=== PATIENT | female | born 1970 | race Caucasian/White ===

== ENCOUNTER → 2017-12-14 15:47 | Outpatient (REF) | payer MEDICAID, SELFPAY ==
[2017-12-14 18:14] LABS: Basophils % 0.4 % (0.1-2.0); Eosinophils # 0.2 K/mm3 (0.0-0.4); Eosinophils % 1.7 % (0.1-12.0); Hematocrit 41.1 % (37.0-47.0); Hemoglobin 13.6 g/dL (12.2-16.2); Lymphocytes # 2.5 K/mm3 (0.7-4.5); Lymphocytes % 23.2 K/mm3 (10-50); Mean Corpuscular HGB Conc 33.2 g/dL (31.8-35.4); Mean Corpuscular Hemoglobin 30.8 pg (27.0-31.2); Mean Corpuscular Volume 92.8 fl (81-99); Mean Platelet Volume 8.3 fl (7.4-10.4); Monocytes # 0.6 K/mm3 (0.1-1.0); Monocytes % 5.6 % (1.7-9.3); Neutrophils # 7.4 K/mm3 (1.8-7.8); Neutrophils % 69.1 % (37.0-80.0); Platelet Count 309 K/mm3 (142-424); Red Blood Count 4.43 M/mm3 (4.20-5.40); Red Cell Distribution Width 12.1 % (11.5-17.5); White Blood Count 10.8 K/mm3 (4.8-10.8)
[2017-12-14 19:00] LABS: Hemoglobin A1C 5.8 % (0.0-7.0)
[2017-12-14 20:39] LABS: Alanine Aminotransferase 36 U/L (12-78); Albumin Level 3.8 gm/dL (3.4-5.0); Alkaline Phosphatase 133 U/L (46-116); Anion Gap 12.2 mEq/L (5-15); Aspartate Amino Transferase 22 U/L (15-37); Bilirubin,Total 0.2 mg/dL (0.2-1.0); Blood Urea Nitrogen 8 mg/dL (7-18); Calcium 8.9 mg/dL (8.5-10.1); Carbon Dioxide 27 mmol/L (21.0-32.0); Chloride 103 mmol/L (98-107); Creatinine,Serum 0.91 mg/dL (0.55-1.02); Estimated Glomerular Filt Rate 66 ml/min (>60); GFR (African American) 80 ML/MIN (>60); Globulin 3.7 gm/dl (1.3-3.2); Glucose 72 mg/dL (74-106); Potassium 4.2 mmoL/L (3.5-5.1); Sodium 138 mmol/L (136-145); T4 (Thyroxine) 8.1 ug/dl (4.7-13.3); Thyroid Stimulating Hormone 0.89 uIU/ml (0.358-3.740); Total Protein,Serum 7.5 gm/dL (6.4-8.2)
[2017-12-16 08:27] LABS: Vitamin D 25 Hydroxy 19.2 ng/mL (30.0-100.0)
== END ==
LOC: LAB 15:47
PROVIDERS: Visit Provider Physician Assistant
DX: R53.83 Other fatigue (principal); F32.1 Major depressive disorder, single episode, moderate; F41.9 Anxiety disorder, unspecified
CPT/HCPCS: 80053; 82652; 83036; 84436; 84443; 85025

== ENCOUNTER → 2019-05-28 12:54 | Outpatient (CLI) | payer OTHER, SELFPAY | PROVIDERS: PCP Physician Assistant; Visit Provider Physician Assistant | DX: R06.02 Shortness of breath (principal) | CPT/HCPCS: 94060; 94640; 94726; 94727; 94729 ==

== ENCOUNTER 2020-08-26 13:39 | Emergency (ER) | payer OTHER, SELFPAY ==
[2020-08-26 13:45] VITALS: BP 141/86; PULSE 89; RESP 20; TEMP 36.9; O2SAT 97; BMI 25.0
--- NOTE | 2020-08-26 14:19 | HMH.EDUTC ---
[facility] Disposition Clinical Impression: Left otitis media Qualifiers: Otitis media type: suppurative Chronicity: acute Recurrence: non-recurrent Spontaneous tympanic membrane rupture: without spontaneous rupture Qualified Code(s): H66.002 - Acute suppurative otitis media without spontaneous rupture of ear drum, left ear Sinusitis Qualifiers: Sinusitis location: unspecified location Chronicity: acute Recurrence: non-recurrent Qualified Code(s): J01.90 - Acute sinusitis, unspecified Disposition: Home, Self-Care Condition on Discharge: Good Instructions: Middle Ear Infection, DI for Sinusitis Additional Instructions: Drink plenty of fluids. Take tylenol or ibuprofen for pain or fever. Take the medications as directed. Follow up with your regular doctor. GO TO THE ER FOR ANY WORSENING SYMPTOMS Prescriptions: Amoxicillin/Potassium Clav [Augmentin 500mg tab] 500 mg PO TID #30 tab Transmission Status: Received by [id number] methylPREDNISolone [Medrol] 4 mg PO DIRECTED 6 Days #21 tab.ds.pk Transmission Status: Received by [id number] Neomycin/Polymyxin B Sulf/Hc [Qdngzwiu-Mdyokpvhq-XM Otic Susp 10mL] 3 drops EAR-RIGHT TID 7 Days #1 bottle Transmission Status: Received by [id number] Referrals: Carrie Boland PA [Primary Care Provider] - Time of Disposition: 14:31 Medical Decision Making - Medical Records Medical records reviewed: No: I reviewed the patient's medical records. - Abram Inquiry Pt receiving controlled substance: No Vital Signs: 08/26/20 13:45 08/26/20 14:32 Temperature 98.4 F 98.4 F Temperature Source Oral Pulse Rate 89 Pulse Rate [Right Brachial] 89 Respiratory Rate 20 20 Blood Pressure 141/86 H Blood Pressure [Right Arm] 141/86 H Blood Pressure Mean [Right Arm] 104 Blood Pressure Source [Right Arm] Automatic Cuff Blood Pressure Position [Right Arm] Sitting 02 Sat by Pulse Oximetry 97 Oxygen Delivery Method Room Air [facility] HPI - General Stated complaint: lt ear pain Time Seen by Provider: 08/26/20 14:19 Mode of Arrival: Ambulatory Source of Information: Patient Limitations: No Limitations Description of Symptoms (Recalled from Triage Doc. by RN): PATIENT C/O LEFT EAR PAIN WITH DECREASED HEARING X 5 DAYS HEENT Symptoms (Recalled from RN notes): Yes Resp Symptoms (Recalled from RN notes): No Skin Symptoms (Recalled from RN notes): No MS Symptoms (Recalled from RN notes): No Functional Status (Recalled from RN notes): WNL - History of Present Illness Provider Complaint: She states that for the past 2 days she has had decreased hearing in her left ear. She has also had a cough and sinus congestion. - Related Data Previous Rx's Medication Instructions Recorded inhalational spacing device See Rx Instructions .ROUTE 06/25/19 .MEDSUPPLY #1 each albuterol sulfate 90 mcg/actuation See Rx Instructions .ROUTE 11/23/19 aerosol inhaler .COMPLEX #18 g benzonatate 200 mg capsule 200 mg PO TID PRN 7 Days #21 cap 02/01/20 methylprednisolone 4 mg tablet 4 mg PO DAILY 6 Days #21 tab 02/01/20 fluticasone furoate 200 See Rx Instructions .ROUTE 07/23/20 mcg-vilanterol 25 mcg/dose .COMPLEX #60 each inhalation powder buspirone 10 mg tablet See Rx Instructions .ROUTE 08/12/20 .COMPLEX #180 tab escitalopram oxalate 10 mg tablet See Rx Instructions .ROUTE 08/12/20 .COMPLEX #90 tab Amoxicillin/Potassium Clav 500 mg PO TID #30 tab 08/26/20 [Augmentin 500mg tab] Neomycin/Polymyxin B Sulf/Hc 3 drops EAR-RIGHT TID 7 Days #1 08/26/20 [Nomgulgf-Zidvdiegg-LO Otic Susp bottle 10mL] methylPREDNISolone [Medrol] 4 mg PO DIRECTED 6 Days #21 08/26/20 tab.ds.pk Allergies Allergy/AdvReac Type Severity Reaction Status Date / Time No Known Allergies Allergy Verified 08/26/20 14:10 - Worker's Comp Is this a Worker's Comp case?: No [facility] History - Hepatitis A Screen Drug use history?: No High risk sexual behaviors
[2020-08-26 14:32] VITALS: BP 141/86; PULSE 89; RESP 20; TEMP 36.9; O2SAT 97
== END 2020-08-26 14:36 | disposition home or self-care (01) ==
PROVIDERS: Emergency Provider Nurse Practitioner Family; PCP Physician Assistant
DX: H66.002 Acute suppurative otitis media without spontaneous rupture of ear drum, left ear (principal); J01.90 Acute sinusitis, unspecified; J44.9 Chronic obstructive pulmonary disease, unspecified; F17.210 Nicotine dependence, cigarettes, uncomplicated; Z79.899 Other long term (current) drug therapy
CPT/HCPCS: 99202; G0463

== ENCOUNTER → 2022-05-11 15:18 | Outpatient (CLI) | payer OTHER, SELFPAY ==
[2022-05-11 19:16] LABS: Alanine Aminotransferase 16 U/L (12-78); Albumin Level 4.5 g/dl (3.5-5.0); Albumin/Globulin Ratio 1.6 (1.1-1.8); Alkaline Phosphatase 113 U/L (38-126); Anion Gap 12.6 mEq/L (5-15); Aspartate Amino Transferase 33 U/L (14-36); Basophils # 0.1 K/mm3 (0-0.2); Basophils % 0.8 % (0.1-2.0); Bilirubin,Total 0.3 mg/dl (0.2-1.3); Blood Urea Nitrogen 12 mg/dl (7-17); Calcium 9.1 mg/dl (8.4-10.2); Carbon Dioxide 24 mmol/L (22.0-30.0); Chloride 107 mmol/L (98-107); Chol/HDL Ratio 4.3 (1-3.5); Cholesterol 213 mg/dl (140-200); Eosinophils # 0.1 K/mm3 (0.0-0.4); Estimated Glomerular Filt Rate 88 ml/min (>60); GFR (African American) 106 ML/MIN (>60); Globulin 2.8 g/dL (1.3-3.2); Glucose 78 mg/dl (74-100); HDL Cholesterol 50 mg/dl (40-60); Hematocrit 38.9 % (37.0-47.0); Lymphocytes % 27.2 % (10-50); Mean Corpuscular HGB Conc 33.3 g/dL (31.8-35.4); Mean Corpuscular Hemoglobin 31.6 pg (27.0-31.2); Mean Corpuscular Volume 94.8 fl (81-99); Mean Platelet Volume 8.3 fl (7.4-10.4); Monocytes # 0.7 K/mm3 (0.1-1.0); Monocytes % 6.4 % (1.7-9.3); Neutrophils % 64.6 % (37.0-80.0); Platelet Count 398 K/mm3 (142-424); Potassium 3.6 mmoL/L (3.5-5.1); Red Blood Count 4.11 M/mm3 (4.20-5.40); Red Cell Distribution Width 12.7 % (11.5-17.5); Sodium 140 mmol/L (136-145); Total Protein,Serum 7.3 g/dl (6.3-8.2); Triglycerides 243 mg/dl (30-150); VLDL Cholesterol 49 mg/dL (0-40); White Blood Count 10.8 K/mm3 (4.8-10.8)
[2022-05-11 19:37] LABS: 25-OH Vitamin D, Total 29.3 ng/mL (30-100)
[2022-05-11 19:47] LABS: Thyroid Stimulating Hormone 0.71 uIU/mL (0.465-4.68)
== END ==
PROVIDERS: PCP Physician Assistant; Visit Provider Physician Assistant
DX: Z00.00 Encounter for general adult medical examination without abnormal findings (principal); E55.9 Vitamin D deficiency, unspecified
CPT/HCPCS: 80053; 80061; 82306; 84443; 85025

== ENCOUNTER 2023-07-26 08:04 | Emergency (ER) | payer BC, SELFPAY ==
[2023-07-26 08:20] VITALS: BP 146/74; PULSE 69; RESP 18; TEMP 36.7; O2SAT 100; BMI 20.7
--- NOTE | 2023-07-26 08:56 | EXP.UTC ---
Discharge Plan Disposition Patient Disposition: Home, Self-Care Condition: Good Prescriptions Prescriptions: New cyclobenzaprine 5 mg tablet 5 mg PO TID PRN (Reason: muscle spasm) Qty: 30 0RF No Action nicotine 21 mg/24 hr patch 24 hour 21 mg TRANSDERMA DAILY Qty: 30 0RF (DME) Blood Pressure Cuff Misc See Rx Instructions .Route Qty: 1 0RF Rx Instructions: As directed diclofenac sodium [Voltaren Arthritis Pain] 1 % gel 2 g topical QID PRN (Reason: pain/stiffness) Qty: 100 2RF Rx Instructions: apply to single elbow, wrist or hand; for hand includes palm/fingers/back of hand (DME) Aerochamber MV Spacer See Rx Instructions .ROUTE .MEDSUPPLY Qty: 1 0RF Rx Instructions: As directed hydroxyzine pamoate 25 mg capsule See Rx Instructions .ROUTE .COMPLEX Qty: 30 0RF Dose Instruction: TAKE 1 CAPSULE BY MOUTH TWICE DAILY NEEDED FOR ANXIETY Rx Instructions: TAKE 1 CAPSULE BY MOUTH TWICE DAILY NEEDED FOR ANXIETY albuterol sulfate 90 mcg/actuation HFA aerosol inhaler 2 puff inhalation Q4-6H PRN (Reason: shortness of breath or wheezing) Qty: 8.5 3RF ergocalciferol (vitamin D2) 1,250 mcg (50,000 unit) capsule 1,250 mcg PO WEEKLY Qty: 14 3RF cholecalciferol (vitamin D3) 50 mcg (2,000 unit) capsule 50 mcg PO DAILY Qty: 90 3RF atorvastatin 10 mg tablet 10 mg PO DAILY Qty: 90 3RF aspirin [Adult Low Dose Aspirin] 81 mg tablet,delayed release (DR/EC) 81 mg PO DAILY Qty: 90 3RF budesonide-formoterol [Symbicort] 160-4.5 mcg/actuation HFA aerosol inhaler See Rx Instructions .ROUTE .COMPLEX Qty: 11 0RF Dose Instruction: Inhale 2 puffs by mouth twice daily Rx Instructions: Inhale 2 puffs by mouth twice daily lisinopril 10 mg tablet See Rx Instructions .ROUTE .COMPLEX Qty: 90 0RF Dose Instruction: Take 1 tablet by mouth once daily Rx Instructions: Take 1 tablet by mouth once daily escitalopram oxalate 10 mg tablet See Rx Instructions .ROUTE .COMPLEX Qty: 90 0RF Dose Instruction: TAKE 1 TABLET BY MOUTH ONCE DAILY FOR ANXIETY Rx Instructions: TAKE 1 TABLET BY MOUTH ONCE DAILY FOR ANXIETY buspirone 10 mg tablet See Rx Instructions .ROUTE .COMPLEX Qty: 180 0RF Dose Instruction: TAKE 1 TABLET BY MOUTH TWICE DAILY FOR DEPRESSION Rx Instructions: TAKE 1 TABLET BY MOUTH TWICE DAILY FOR DEPRESSION Referrals Follow up/Referrals: Carrie Boland PA [Primary Care Provider] - See instructions Activity Restrictions/Add. Instructions Additional Instructions/Restrictions: Pt states that she only takes Buspar daily. NO Ibuprofen/NSAIDS today. May take Tylenol. May take Ibuprofen after 24 hours. Will call with x-ray results. Take medication as prescribed. Follow up with primary care provider. Clinical Impressions Clinical Impression: Acute left-sided thoracic back pain Stand Alone Forms Stand Alone Forms: Work/School Release Instructions Patient Instructions: DI for Thoracic Back Pain Discharge ED Provider: Yane Valdez [facility] General Stated complaint: pain under left shoulder blade, no accident Mode of Arrival: Ambulatory Source of Information: Patient Limitations: No Limitations Time Seen by Provider: 07/26/23 08:55 Description of Symptoms (Recalled from Triage Doc. by RN): Pt lifts heavy stuff at work. She has pain behind her left shoulder blade. She denies any chest pain or cardiac hx. She was washing her hair and hear a pop. 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 She reports having a lot of pain under her left shoulder blade, but it was manageable with Tylenol and rest. She report washing her hair last night and heard and felt a loud pop. She reports that the pain has been almost unbearable since that time and she feels like she can barely want ad clerk the left arm without pain. Related Data Previous Rx's Medication Instructions Recorded inhalational spacing device #1 ea 06/25/19 (Aerochamber MV spacer) nicotine 21 mg/24 hr daily 21 mg transdermal DAILY #30 patches 03/18/21 transdermal patch hydroxyzine pamoate 25 mg capsule See Rx Instructions .Route 03/22/22 .COMPLEX #30 caps albuterol sulfate 90 mcg/actuation 2 puff inhalation Q4-6H PRN 04/01/22 aerosol inhaler shortness of breath or wheezing #8.5 grams diclofenac sodium 1 % topical gel 2 g topical QID PRN pain/stiffness 05/11/22 (Voltaren Arthritis Pain) #100 grams miscellaneous medical supply #1 ea 05/11/22 (Blood Pressure Cuff) aspirin 81 mg tablet,delayed 81 mg PO DAILY #90 tabs 05/12/22 release (Adult Low Dose Aspirin) atorvastatin 10 mg tablet 10 mg PO DAILY #90 tabs 05/12/22 cholecalciferol (vitamin D3) 50 50 mcg PO DAILY #90 caps 05/12/22 mcg (2,000 unit) capsule ergocalciferol (vitamin D2) 1,250 1,250 mcg PO WEEKLY #14 caps 05/12/22 mcg (50,000 unit) capsule Symbicort 160 mcg-4.5 See Rx Instructions .Route 08/03/22 mcg/actuation HFA aerosol inhaler .COMPLEX #11 grams (budesonide-formoterol) lisinopril 10 mg tablet See Rx Instructions .Route 11/08/22 .COMPLEX #90 tabs escitalopram oxalate 10 mg tablet See Rx Instructions .Route 02/24/23 .COMPLEX #90 tabs buspirone 10 mg tablet See Rx Instructions .Route 05/24/23 .COMPLEX #180 tabs cyclobenzaprine 5 mg tablet 5 mg PO TID PRN muscle spasm #30 07/26/23 tabs Allergies Allergy/AdvReac Type Severity Reaction Status Date / Time No Known Allergies Allergy Verified 07/26/23 08:27 Worker's Comp Is this a Worker's Comp case?: No [facility] Disclaimer: The information contained in this section may have been updated after the patient was seen, as this information can be updated by other users. Medical History Anxiety Depression Tobacco abuse Social History Smoking Status: Current every day smoker tobacco type: cigarettes packs per day: 1 alcohol intake: never substance use type: denies use current occupational status: other Travel in the last 8 weeks: None ROS Obtained: Yes All systems reviewed & no additional complaints except as documented Constitutional Constitutional: Reports system reviewed and no additional complaints, except as documented Eyes Eyes: Reports system reviewed and no additional complaints, except as documented ENT Ears, Nose, Mouth, and Throat: Reports system reviewed and no additional complaints, except as documented Cardiovascular Cardiovascular: Reports system reviewed and no additional complaints, except as documented Respiratory Respiratory: Reports system reviewed and no additional complaints, except as documented Gastrointestinal Gastrointestingal: Reports system reviewed and no additional complaints, except as documented Genitourinary Female Genitourinary: Reports system reviewed and no additional complaints, except as documented Musculoskeletal Musculoskeletal: Reports system reviewed and no additional complaints, except as documented, Reports back pain, Reports muscle cramps and Reports myalgias Integumentary/Breasts Skin/Breast: Reports system reviewed and no additional complaints, except as documented Neurologic Neurologic: Reports system reviewed and no additional complaints, except as documented Endocrine Endocrine: Reports system reviewed and no additional complaints, except as documented Hematologic/Lymphatic Henatologic/Lymphatic: Reports system reviewed and no additional complaints, except as documented Allergic/Immunologic Allergic/Immunologic: Reports system reviewed and no additional complaints, except as documented Physical Exam General General appearance: alert Comment: appears to be in pain Head Head exam: atraumatic and normocephalic Eye Eye exam: Present normal appearance ENT ENT exam: Present normal exam Expanded ENT Exam External ear exam: Present normal external inspection Nasal speculum exam: Bilateral: normal Mouth exam: Present normal external inspection Teeth exam: Present dental caries Throat exam: Present normal inspection Neck Neck exam: Present normal inspection Chest Chest inspection: Present normal inspection, symmetric chest wall rise and tenderness Expanded Chest Exam Breast: left: tenderness (goes from back to side ) Respiratory Respiratory exam: Present normal lung sounds bilaterally Cardiovascular Cardiovascular exam: Present regular rate and normal rhythm Abdominal Exam Abdominal exam: Present soft Back Exam Back exam: Present muscle spasm Back 1 view image: 1. tender at slightest touch. Neurological Exam Neurological exam: Present alert and oriented X3 Psychiatric Psychiatric exam: Present normal affect and normal mood Skin Skin exam: Present warm, dry and intact Lymphatic Lymphatic Findings: no adenopathy Medical Decision Making Abram Inquiry Pt receiving controlled substance: No Abram was queried for this patient: No Vital Signs: 07/26/23 08:20 Temperature 98.1 F Temperature Source Oral Pulse Rate [Right Radial] 69 Respiratory Rate 18 Blood Pressure [Right Arm] 146/74 H Blood Pressure Mean [Right Arm] 98 Blood Pressure Source [Right Arm] Automatic Cuff Blood Pressure Position [Right Arm] Sitting 02 Sat by Pulse Oximetry 100 Oxygen Delivery Method Room Air
--- NOTE | 2023-07-26 09:04 | XR_ITS ---
PROCEDURE INFORMATION: Exam: XR Thoracic Spine Exam date and time: 07/26/2023 9:18 AM Age: 53 years old Clinical indication: Pain in thoracic spine TECHNIQUE: Imaging protocol: Radiologic exam of the thoracic spine. Views: 2 views. COMPARISON: CR XR CERVICAL SPINE 3V 07/26/2023 9:12 AM FINDINGS: Bones/joints: Alignment is normal. No visualized fracture. No paravertebral soft tissue prominence. Disc space heights well-maintained. No osteophyte formation. No appreciable degenerative changes. Soft tissues: See Bones/joints finding. IMPRESSION: Unremarkable thoracic spine.
--- NOTE | 2023-07-26 09:04 | XR_ITS ---
PROCEDURE INFORMATION: Exam: XR Lumbosacral Spine Exam date and time: 07/26/2023 9:20 AM Age: 53 years old Clinical indication: Low back pain TECHNIQUE: Imaging protocol: Radiologic exam of the lumbosacral spine. Views: 2 or 3 views. COMPARISON: CR XR THORACIC SPINE 2V 07/26/2023 9:18 AM FINDINGS: Bones/joints: 5 non-rib bearing lumbar segments in near anatomical alignment. Alignment is normal. No fracture. Disc space height is well-maintained. No osteophytosis. No visualized pars defect. Facets are without acute process. Soft tissues: Unremarkable. IMPRESSION: Normal lumbar spine series
--- NOTE | 2023-07-26 09:04 | XR_ITS ---
PROCEDURE INFORMATION: Exam: XR Cervical Spine Exam date and time: 07/26/2023 9:12 AM Age: 53 years old Clinical indication: Neck pain TECHNIQUE: Imaging protocol: Radiologic exam of the cervical spine. Views: 2 or 3 views. COMPARISON: [facility] CT cervical spine wo con 10/22/2018 6:39 AM FINDINGS: Bones/joints: Alignment normal. posterior vertebral line and the spinal laminar line normal. odontoid process normal. no fracture. degenerative disc disease most pronounced C4-C5 and C5-C6 reflected as mild disk space narrowing and anterior osteophyte formation. Soft tissues: Unremarkable. IMPRESSION: Degenerative disc disease most pronounced C4-C5 and C5-C6 reflected as mild disk space narrowing and anterior osteophyte formation.
--- NOTE | 2023-07-26 09:22 | PC.NURSE ---
Pt went to RAD
[2023-07-26] MEDS: KETOROLAC 30MG/ML VIAL 30 MG IM (09:58)
[2023-07-26] MEDS: DEXAMETHASONE 4MG/ML 1ML VIAL 8 MG IM (09:59)
[2023-07-26 10:19] VITALS: BP 105/69; PULSE 77; RESP 18; TEMP 36.8; O2SAT 98
== END 2023-07-26 10:19 | disposition home or self-care (01) ==
PROVIDERS: Emergency Provider Nurse Practitioner Family; PCP Physician Assistant
DX: M54.6 Pain in thoracic spine (principal); F17.210 Nicotine dependence, cigarettes, uncomplicated; X50.0XXA Overexertion from strenuous movement or load, initial encounter
CPT/HCPCS: 72040; 72070; 72100; 96372; 99212; 99214; G0463

== ENCOUNTER 2023-08-05 15:56 | Outpatient (RCR) | payer BC, SELFPAY ==
--- NOTE | 2023-08-09 09:48 | HMH.PTOPEV ---
PT Outpatient Evaluation Rehab PT Outpatient Evaluation Start: 08/09/23 09:34 Freq: Status: Active Protocol: Document 08/05/23 16:00 YON (Rec: 08/09/23 09:47 YON [id number]) E-signed By Reji Mccauley, PT Outpatient Therapy Subjective History Subjective History Patient is a 53 year old female presenting to outpatient PT with reports L sided thoracic spine pain starting approx 1 month ago. Sympotms of insidious onset. Most recent imaging unremarkable. Comorbidities include hx of HTN and COPD. Symptoms specific to T6-9 segements. New diagnosis of cancer in past 12 No months? Chief Complaint Pain,Stiff Symptom Type Ache,Sharp Symptoms Relieved By Rest/Positioning Symptoms Aggravated By Lifting Prior Functional Limitations None Current Functional Limitations Reaching,Lifting,Housework Symptom Description Constant but Variable Level of pain today (0-10) 5 Pain scale - at its best (0-10) 2 Pain scale - at its worst (0-10) 9 Cervical Eval Palpation Cervical Muscles L Thoracic Paraspinals Cervical/Thoracic Palpation Findings Tenderness Flexibility Deficits Pectoralis Minor Muscle Length (R) Moderate Tightness,(L) Moderate Tightness Passive Joint Mobility Cervical PIVM Dec: R C7/T1 L C7/T1 WNL: R OA L OA R AA L AA R C2/3 L C2/3 R C3/4 L C3/4 R C4/5 L C4/5 R C5/6 L C5/6 R C6/7 L C6/7 AROM Cervical Spine Extension Active Range of WNL Motion (degrees) Cervical Spine Flexion Active Range of WNL Motion (degrees) Cervical Spine Right Lateral Flexion WNL Active Range of Motion (degrees) Cervical Spine Left Lateral Flexion WNL Active Range of Motion (degrees) Cervical Spine Right Rotation Active WNL Range of Motion (degrees) Cervical Spine Left Rotation Active WNL Range of Motion (degrees) MMT Bilateral Deltoid (C5) 5 Normal Biceps Brachii Strength Grade 5 Normal Wrist Extension Strength Grade 5 Normal Triceps Brachii Strength Grade 5 Normal Wrist Flexion Strength Grade 5 Normal Extensor Pollicis Longus Strength Grade 5 Normal Finger Abduction Strength Grade 5 Normal Special Test C-Spine Foraminal Compression (Spurling) Negative Left,Negative Right Test C-Spine Foraminal Distraction Test Negative Neck Disability Index Neck Disability Index Section 1: Pain Intensity The pain is moderate at the moment Section 2: Personal Care (washing, It is painful to look after dressing, etc.) myself and I am slow and careful Section 3: Lifting Pain prevents me from lifting heavy weights, but I can manage light to Section 4: Reading I can read as much as I want to with slight pain in my neck Section 5: Headaches I have moderate headaches, which come infrequently Section 6: Concentration I can concentrate fully when I want to with slight difficulty Section 7: Work I can do most of my usual work , but no more Section 8: Driving I can drive my car as long as I want with moderate pain in my neck Section 9: Sleeping My sleep is moderately disturbed (2-3 hrs. sleepless) Section 10: Recreation I am able to engage in most, but not all of my usual recreation NDI Score 20 Outpatient Therapy Assessment Impairments Problems/Impairmments Palpation Tenderness,Impaired Lifting,Impaired Household Care,Subjective C/O Pain Prognosis Rehab Potential Good Clinical Impression Consistent with Diagnosis Yes Short Term Goals Number of Weeks 2 Decrease Subjective C/O Pain Yes: 09/01 at worst Patient to be Ind w/ HEP Yes Development Consultant Goals Number of Weeks 4-6 Decreased Palpation Tenderness Yes: 04/28 Restore Ability to Lift Objects to Yes: 10 lb without difficulty Shoulder Level Restore Ability to Lift Objects Overhead Yes: Improve Ability For Household Care Yes Decrease Subjective C/O Pain Yes: 06/04 at worst Outpatient Therapy Plan of Care Treatment Plan May Include Therapeutic Exercise Including Home Yes Exercise Program Manual Therapy Techniques Yes Neuromuscular Re-education Yes Therapeutic Activities to Return to Yes Previous Functional/Work Level Gait Training Yes ADL/Self Care Education Yes Mechanical Traction Yes Dry Needling Yes Thermal Modalities Yes Electrical Stimulation Yes Ultrasound/Phonophoresis Yes Iontophoresis Yes Orthotics/Bracing/Splinting Yes Massage Yes Eval/Re-Eval Yes Frequency Times per week 2 Duration Number of Weeks 4-6 Addendums This patient is a candidate for social No or vocational rehab? Patient/Guardian verbally acknowledges Yes understanding of treatment program and consents to further treatment? Patient/Guardian verbally acknowledges Yes understanding of diagnosis, prognosis and goals for treatment? Eval Complexity PT Charges 68372 - Moderate Complexity Shoulder/Elbow Eval Shoulder Objective Measurements Elbow Objective Measurements PHYSICIAN CERTIFICATION: I certify the specified therapy services for Melida Huffman are required, authorized, and reviewed every 30 days.
== END 2023-08-05 15:59 | disposition home or self-care (01) ==
LOC: PT 15:56
PROVIDERS: Visit Provider Nurse Practitioner Family
DX: M54.6 Pain in thoracic spine (principal)
CPT/HCPCS: 97163